=== PATIENT | female | born 1985 | race Caucasian/White ===

== ENCOUNTER 2025-05-01 07:46 | Emergency (ER) | payer MEDICAID ==
[~2025-05-01] VITALS: Ht 165.1 cm; Wt 93.0 kg
[2025-05-01] MEDS ORDERED: HYDR30CR79 TP (09:19)
[2025-05-01] MEDS: LIDOCAINE 5% OINT 35.44 GM TUBE TP STA (09:39)
[2025-05-01 09:41] VITALS: BP 131/82; TEMP 98.6; O2SAT 99
== END 2025-05-01 09:41 | disposition home or self-care (01) ==
LOC: ER 07:50
DX: K64.9 Unspecified hemorrhoids (principal); K62.89 Other specified diseases of anus and rectum; Z90.49 Acquired absence of other specified parts of digestive tract; Z60.2 Problems related to living alone